=== PATIENT | female | born 1965 | race Caucasian/White ===

== ENCOUNTER 2021-09-18 03:14 | Inpatient (IN) | payer BC ==
[~2021-09-18] VITALS: Ht 152.4 cm; Wt 78.0 kg
--- NOTE | 2021-09-18 03:33 | NUR ---
seen by MD at bedside with new orders.
[2021-09-18] MEDS ORDERED: KETOROLAC TROMETHAMINE 30 MG VIAL IVP ONE (03:45)
[2021-09-18] MEDS ORDERED: ONDANSETRON HCL 4 MG/2 ML VIAL IVP ONE (03:45)
[2021-09-18] MEDS ORDERED: NACL 0.9% 1,000 ML IV ONE (03:45)
--- NOTE | 2021-09-18 04:00 | NUR ---
Placed in room 3 . Placed on phototypesetting equipment monitor, blood pressure machine and pulse oximeter. To gown for exam. Side rails up. pt a&o x4, verbal, ambulatory, with c/o left flank pain, no sob/ distress.
[2021-09-18 04:04] LABS: BASOPHILS # (AUTO) 0.1 K/uL (0.0-0.2); BASOPHILS % (AUTO) 1.2 % (0.0-2.0); EOSINOPHILS # (AUTO) 0.2 K/uL (0.0-0.4); EOSINOPHILS % (AUTO) 1.4 % (0.0-4.0); HEMATOCRIT 40.6 % (36-48); HEMOGLOBIN 13.6 g/dL (12.0-16.0); LYMPHOCYTES # (AUTO) 2.5 K/uL (1.0-5.5); MEAN CORPUSCULAR HEMOGLOBIN 32 pg (27-31); MEAN CORPUSCULAR HGB CONC 34 % (32-36); MEAN CORPUSCULAR VOLUME 94 fL (79.0-98.0); MONOCYTES # (AUTO) 0.6 K/uL (0.0-1.0); MONOCYTES % (AUTO) 5.6 % (1.7-9.3); NEUTROPHILS % (AUTO) 67.8 % (40.0-70.0); PLATELET COUNT (AUTO) 259 K/uL (130-430); RED BLOOD CELL COUNT(AUTO) 4.32 MIL/uL (4.2-6.2); RED CELL DISTRIBUTION WIDTH 14.4 % (9.0-15.0); WHITE BLOOD COUNT (AUTO) 10.4 K/uL (4.8-10.8)
[2021-09-18 04:08] LABS: CALCIUM 9.6 mg/dL (8.4-11.0); POTASSIUM 3.8 mmol/L (3.5-5.1)
[2021-09-18 04:14] LABS: ALBUMIN 3.5 g/dL (3.4-4.8); TOTAL BILIRUBIN 0.4 mg/dL (0.0-1.0)
[2021-09-18] MEDS ORDERED: MORPHINE 4 MG INJ. 4 MG/ML VIAL IVP ONE ×2 (05:15→06:15)
[2021-09-18] MEDS ORDERED: PROCHLORPERAZINE EDISYLATE 10 MG/2 ML VIAL IVP ONE (05:15)
[2021-09-18] MEDS ORDERED: D5/0.45 NS 1,000 ML IV ONE (05:30)
--- NOTE | 2021-09-18 06:39 | NUR ---
Admit bed requested Patient will be admitted to care of . Admitted to unit. Diagnosis Inpatient (Yes or No) Observation (Yes or No) Orientation concerns or request close to nursing station (Yes or No) Covid Status On vent or bipap Isolation requirements Needs a sitter From Home (Yes or if No enter name of facility) Requires Dialysis (Yes or No) Med Rec Completed (Yes of No)
[2021-09-18] MEDS ORDERED: LIP10 PO (06:53)
[2021-09-18] MEDS ORDERED: TOPI25CA7 PO (06:53)
[2021-09-18] MEDS ORDERED: CEPH-548 PO (06:53)
--- NOTE | 2021-09-18 07:11 | NUR ---
Resumed pt care at this time. Pt triage documentation not done. Pt initial assessment not done. Pt in bed in no acute distress at this time. denies CP or SOB. Pt on rn cardiac. Will continue to monitor pt.
--- NOTE | 2021-09-18 08:36 | NUR ---
Admit bed requested Patient will be admitted to care of . Admitted to [facility] unit. Diagnosis KIDNEY STONE Inpatient (Yes or No) YES Observation (Yes or No) NO Orientation concerns or request close to nursing station (Yes or No) NO Covid Status NEGATIVE On vent or bipap NO Isolation requirements NO Needs a sitter NO From Home (Yes or if No enter name of facility) HOME Requires Dialysis (Yes or No) NO Med Rec Completed (Yes of No) YES
[2021-09-18] MEDS ORDERED: ONDANSETRON HCL 4 MG/2 ML VIAL IVP PRN (09:45)
--- NOTE | 2021-09-18 10:21 | NUR ---
Telephone report called to floor. Spoke to Noemi RN. Pt transported to floor by ED RN in no acute distress Aox4 GCS [address]
--- NOTE | 2021-09-18 10:31 | NUR ---
Report received from SONJA Franklin for continuity of care. [place]. Alert and oriented x4. Ambulatory with steady gait from gurney to bed. Vital stable.
[2021-09-18 10:44] VITALS: BP_SYST 101
[2021-09-18 11:00] VITALS: BP_SYST 134
[2021-09-18] MEDS: IBUPROFEN 600 MG TABLET PO SCH ×2 (11:17→19:37)
[2021-09-18 12:00] VITALS: BP_SYST 120
[2021-09-18 18:54] VITALS: BP_SYST 136
--- NOTE | 2021-09-18 19:31 | NUR ---
Report given to SONJA Gamez for continuity of care. Patient stable condition.
--- NOTE | 2021-09-18 19:35 | NUR ---
Opening note Received report from day shift. Pt is awake lying in bed, a/o x 4. No s/s of respiratory distress. Breathing even and unlabored. IV site intact and patent saline lock. Fall and safety precautions in place with bed in lowest position and call light within reach.
[2021-09-18 20:00] VITALS: BP_SYST 97
[2021-09-18] MEDS ORDERED: TOPIRAMATE 25 MG TABLET(TOPAMAX) PO SCH (21:00)
[2021-09-18] MEDS: KETOROLAC TROMETHAMINE 30 MG VIAL IVP PRN (23:50)
[2021-09-19] VITALS: BP_SYST 113
--- NOTE | 2021-09-19 00:15 | NUR ---
Rounds Pt is awake in bed, c/o flank pain. PRN pain medication administered. Fall and safety checks in place
--- NOTE | 2021-09-19 07:03 | NUR ---
Closing note Pt is awake lying in bed, a/o x 4. No s/s of respiratory distress. Breathing even and unlabored. IV site intact and patent saline lock. Not c/o pain at the moment and denied pain medication. All needs met throughout shift. Fall and safety precautions in place with bed in lowest position and call light within reach.
--- NOTE | 2021-09-19 07:37 | NUR ---
Report received from SONJA Gamez for continuity of care. Patient is resting in bed. Side rails up x3. No distress noted. Will continue to monitor.
[2021-09-19 08:00] VITALS: BP_SYST 124
[2021-09-19 08:18] LABS: BASOPHILS % (AUTO) 0.5 % (0.0-2.0); EOSINOPHILS # (AUTO) 0.2 K/uL (0.0-0.4); EOSINOPHILS % (AUTO) 2.6 % (0.0-4.0); HEMATOCRIT 36.2 % (36-48); LYMPHOCYTES # (AUTO) 2.2 K/uL (1.0-5.5); LYMPHOCYTES % (AUTO) 36.4 % (20.5-51.5); MEAN CORPUSCULAR HEMOGLOBIN 31 pg (27-31); MEAN CORPUSCULAR HGB CONC 33 % (32-36); MEAN CORPUSCULAR VOLUME 95 fL (79.0-98.0); MONOCYTES # (AUTO) 0.4 K/uL (0.0-1.0); MONOCYTES % (AUTO) 6.9 % (1.7-9.3); NEUTROPHILS # (AUTO) 3.2 K/uL (1.8-7.7); NEUTROPHILS % (AUTO) 53.6 % (40.0-70.0); PLATELET COUNT (AUTO) 218 K/uL (130-430); RED BLOOD CELL COUNT(AUTO) 3.82 MIL/uL (4.2-6.2); RED CELL DISTRIBUTION WIDTH 14.5 % (9.0-15.0); WHITE BLOOD COUNT (AUTO) 5.9 K/uL (4.8-10.8)
[2021-09-19] MEDS: IBUPROFEN 600 MG TABLET PO SCH ×2 (08:51→12:00)
[2021-09-19] MEDS ORDERED: ATORVASTATIN 10 MG TABLET PO SCH (09:00)
[2021-09-19 09:06] LABS: ALBUMIN 2.7 g/dL (3.4-4.8); CALCIUM 8.5 mg/dL (8.4-11.0); TOTAL BILIRUBIN 0.6 mg/dL (0.0-1.0)
[2021-09-19] MEDS ORDERED: TAMS-11 PO (10:31)
[2021-09-19] MEDS ORDERED: IBUP-1969 PO (10:31)
[2021-09-19 12:00] VITALS: BP_SYST 132
[2021-09-19 13:07] VITALS: BP_SYST 134
[2021-09-19 13:15] VITALS: BP_SYST 136
[2021-09-19] MEDS: KETOROLAC TROMETHAMINE 30 MG VIAL IVP PRN (13:45)
--- NOTE | 2021-09-19 14:22 | NUR ---
Patient stable condition. No distress noted. Vital signs stable for discharge. Patient is ambulatory with steady gait. IV removed on right hand and site is clean, dry, and intact. Patient changed into regular clothes. All paperwork with patient. Education on medications given. Patient's came to pick patient up.
--- NOTE | 2021-09-20 08:19 | NUR ---
Dispo code 01
== END 2021-09-19 14:45 | disposition home health service (06) | DRG 694 ==
LOC: SED 03:14 → SMU 05:19
PROVIDERS: ADMIT Preventive Medicine Preventive Medicine/Occupational Environmental Medicine; ATTEND Preventive Medicine Preventive Medicine/Occupational Environmental Medicine
DX: N13.2 Hydronephrosis with renal and ureteral calculous obstruction (principal); E78.5 Hyperlipidemia, unspecified; I10 Essential (primary) hypertension; Z20.822 Contact with and (suspected) exposure to COVID-19; R31.9 Hematuria, unspecified; Z79.899 Other long term (current) drug therapy
CPT/HCPCS: 36415; 74018; 76376; 80053; 85025; 96374; 96375; 96376; 99285; J0780; J1885; J2270; J2405